=== PATIENT | male | born 1995 ===

== ENCOUNTER 2020-03-05 03:31 | Emergency (ER) | payer SELFPAY ==
--- NOTE | 2020-03-05 10:21 | EKG REPORT ---
SEVERITY:- BORDERLINE ECG - SINUS TACHYCARDIA INFERIOR Q WAVES, PROBABLY NORMAL VARIATION BORDERLINE T ABNORMALITIES, INFERIOR LEADS : Confirmed by: Nikki Young 05-Mar-2020 10:20:15
== END 2020-03-05 04:04 | disposition left against medical advice (07) ==
LOC: ER 03:31
DX: Z53.21 Procedure and treatment not carried out due to patient leaving prior to being seen by health care provider (principal)
CPT/HCPCS: 93005; 93010